=== PATIENT | male | born 1985 | race Caucasian/White ===

== ENCOUNTER 2017-08-10 16:23 | Emergency (ER) | payer MEDICAID ==
[~2017-08-10] VITALS: Ht 180.3 cm; Wt 83.9 kg
[~2017-08-10 16:23] MED LIST: (None)20 M1 PO; EPIN.3I IM; Pepcid20 MG PO; Vistaril25 MG PO
[2017-08-10] MEDS ORDERED: BENZ100A PO (18:00)
== END 2017-08-10 18:05 | disposition home or self-care (01) ==
LOC: ER 16:23
DX: J06.9 Acute upper respiratory infection, unspecified (principal); Z91.030 Bee allergy status; F17.200 Nicotine dependence, unspecified, uncomplicated
CPT/HCPCS: 87081; 87430; 99283

== ENCOUNTER 2017-08-24 18:09 | Emergency (ER) | payer OTHER ==
[~2017-08-24] VITALS: Ht 180.3 cm; Wt 83.9 kg
[~2017-08-24 18:09] MED LIST changes: +BENZ100A PO
[2017-08-24] MEDS ORDERED: Amoxicillin500 MG PO (18:43)
== END 2017-08-24 19:29 | disposition home or self-care (01) ==
LOC: ER 18:09
DX: H66.91 Otitis media, unspecified, right ear (principal); Z91.030 Bee allergy status; Z79.2 Long term (current) use of antibiotics
CPT/HCPCS: 99283

== ENCOUNTER 2018-02-21 20:58 | Emergency (ER) | payer OTHER ==
[~2018-02-21] VITALS: Ht 180.3 cm; Wt 88.5 kg
[~2018-02-21 20:58] MED LIST changes: +Amoxicillin500 MG PO
== END 2018-02-21 22:12 | disposition home or self-care (01) ==
LOC: ER 20:58
DX: S43.401A Unspecified sprain of right shoulder joint, initial encounter (principal); Z91.030 Bee allergy status; W19.XXXA Unspecified fall, initial encounter
CPT/HCPCS: 73030; 99283-25

== ENCOUNTER 2020-12-16 07:29 | Emergency (ER) | payer OTHER ==
[~2020-12-16] VITALS: Ht 180.3 cm; Wt 95.2 kg
[2020-12-16 08:06] LABS: BASOPHILS ABSOLUTE AUTO 0.01 K/mm3 (0.00-0.23); BASOPHILS PERCENT AUTO 0 % (0-2); EOSINOPHILS PERCENT AUTO 0 % (0-6); Hematocrit 49.4 % (37.0-53.0); Hemoglobin 17.1 g/dL (13.5-17.5); IMMATURE GRAN ABSOLUTE AUTO 0.02 K/mm3 (0.00-0.10); IMMATURE GRAN PERCENT AUTO 0 % (0-1); LYMPHOCYTES ABSOLUTE AUTO 1.44 K/mm3 (0.84-5.20); LYMPHOCYTES PERCENT AUTO 30 % (21-46); MONOCYTES ABSOLUTE AUTO 0.87 K/mm3 (0.16-1.47); MONOCYTES PERCENT AUTO 18 % (4-13); Mean Corpuscular HGB 29.2 pg (26.0-34.0); Mean Corpuscular HGB Conc 34.6 g/dL (31.5-36.5); Mean Corpuscular Volume 84 fL (80-100); Mean Platelet Volume 10.9 fL (9.1-12.4); NEUTROPHILS ABSOLUTE AUTO 2.52 K/mm3 (1.96-9.15); NEUTROPHILS PERCENT AUTO 52 % (41-73); Platelet Count 187 K/mm3 (150-400); RDW Coefficient Variation 12.4 % (11.7-14.2); RDW Standard Deviation 38.2 fL (35.1-46.3); Red Blood Cell Count 5.86 M/mm3 (4.30-5.90); White Blood Cell Count 4.86 K/mm3 (4.00-11.30)
[2020-12-16 08:22] LABS: Alanine Aminotransfer (ALT/SGP 51 U/L (12-78); Albumin, Blood 3.6 g/dL (3.4-5.0); Albumin/Globulin Ratio 0.8 (0.8-1.8); Alk Phos 74 U/L (50-136); Anion Gap 6 mmol/L (6-16); Aspartate Aminotrans (AST/SGOT 46 U/L (12-37); Bilirubin, Total 0.7 mg/dL (0.1-1.0); Blood Urea Nitrogen 12 mg/dL (8-24); Bun/Creatinine Ratio 14.8 (12.0-20.0); CO2, Blood 28 mmol/L (21-32); Calcium, Blood 9.1 mg/dL (8.5-10.1); Chloride, Blood 100 mmol/L (98-108); Creatinine, Blood 0.81 mg/dL (0.60-1.20); Globulin, Blood 4.5 g/dL (2.2-4.0); Glomerular Filtration Rate >60 (60-); Glucose, Blood 103 mg/dL (70-99); Potassium, Blood 3.3 mmol/L (3.5-5.5); Sodium, Blood 134 mmol/L (136-145); Total Protein, Blood 8.1 g/dL (6.4-8.2)
== END 2020-12-16 09:01 | disposition home or self-care (01) ==
LOC: ER 07:29
PROVIDERS: Emergency Medicine
DX: U07.1 COVID-19 (principal); Z91.030 Bee allergy status
CPT/HCPCS: 71045; 80053; 85025; 99285-25; J7030

== ENCOUNTER 2024-08-20 05:28 | Emergency (ER) | payer OTHER ==
[~2024-08-20] VITALS: Ht 180.3 cm; Wt 98.9 kg
[2024-08-20 06:35] LABS: Influenza A, PCR NEGATIVE (NEGATIVE); Influenza B, PCR NEGATIVE (NEGATIVE); Resp Syncytial Virus, PCR NEGATIVE (NEGATIVE); SARS-Cov-2 (COVID-19) PCR, MMC NEGATIVE (NEGATIVE)
[2024-08-20] MEDS ORDERED: ONDA4ODT MM (06:59)
[2024-08-20] MEDS ORDERED: RX Prepack 2 Tabs Ondansetron ODT 4MG UD ONE (07:00)
[2024-08-20 07:08] VITALS: BP 127/78
== END 2024-08-20 07:11 | disposition home or self-care (01) ==
LOC: ER 05:28
PROVIDERS: Student in an Organized Health Care Education/Training Program
DX: A08.4 Viral intestinal infection, unspecified (principal); E86.0 Dehydration; Z91.030 Bee allergy status
CPT/HCPCS: 0241U; 99283; A9270

== ENCOUNTER 2024-11-13 17:08 | Emergency (ER) | payer OTHER ==
[~2024-11-13] VITALS: Ht 180.3 cm; Wt 94.3 kg
[~2024-11-13 17:08] MED LIST changes: +ONDA4ODT MM
[2024-11-13 18:01] VITALS: BP 119/78
== END 2024-11-13 18:04 | disposition home or self-care (01) ==
LOC: ER 17:08
DX: I45.81 Long QT syndrome (principal); Z91.030 Bee allergy status; Z79.2 Long term (current) use of antibiotics
CPT/HCPCS: 93005; 93010; 99281-25

== ENCOUNTER 2025-01-08 16:48 | Emergency (ER) | payer OTHER ==
[~2025-01-08] VITALS: Ht 180.3 cm; Wt 90.7 kg
[2025-01-08 17:01] VITALS: BP 142/81
== END 2025-01-08 17:27 | disposition home or self-care (01) ==
LOC: ER 16:48
DX: Z02.79 Encounter for issue of other medical certificate (principal); Z91.030 Bee allergy status; Z79.899 Other long term (current) drug therapy
CPT/HCPCS: 93005; 93010; 99283-25